=== PATIENT | female | born 1990 ===

== ENCOUNTER 2018-11-28 15:19 | Emergency (ER) | payer OTHER ==
[2018-11-28 15:28] VITALS: RESP 18
[2018-11-28] MEDS ORDERED: Sodium Chloride 0.9% 1,000 ML IV STA (15:50)
--- NOTE | 2018-11-28 16:29 | ED PDOC ---
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 Patient also reports associated mild lower abdominal cramping. She notes she is approximately 12 weeks . She states she has had care. Patient has been taking vitamins. This past Friday, she had an ultrasound which confirmed a viable IUP. She states this is her 4th and has 2 living children that are full term and c section delivered and 1 elective . Denies fever, vomiting, diarrhea, or urinary symptoms. Last period was September 03. PMD: Dr. Moustapha Bella [facility] Past Medical History Reviewed: Historical Data, Nursing Documentation, Vital Signs Vital Signs: Last Vital Signs Temp 97.8 F 11/28/18 15:25 Pulse 98 H 11/28/18 15:25 Resp 18 11/28/18 15:25 BP 116/76 11/28/18 15:25 Pulse Ox 100 11/28/18 15:25 - Medical History PMH: Hypothyroidism Other PMH: Thyroid nodules - Surgical History Surgical History: Appendectomy, - Family History Family History: States: Unknown Family Hx - Home Medications Home Medications: Ambulatory Orders Medication Instructions Recorded Multivit/Folic Acid/I 1 tab PO DAILY 08/17/16 [] Acetaminophen [Acetaminophen 8 650 mg PO Q8 PRN #21 tablet.er 11/28/18 Hour] 21/Iron Fu/Folic Acid 1 each PO DAILY #60 tablet 11/28/18 [ Complete Caplet] - Allergies Allergies/Adverse Reactions: Allergies Allergy/AdvReac Type Severity Reaction Status Date / Time No Known Allergies Allergy Verified 05/30/15 19:46 Review of Systems ROS Statement: Except As Marked, All Systems Reviewed And Found Negative Constitutional: Negative for: Fever Gastrointestinal: Positive for: Abdominal Pain (mild lower abdominal cramping). Negative for: Vomiting Genitourinary Female: Positive for: Vaginal Bleeding. Negative for: Dysuria, Hematuria Physical Exam - Reviewed Nursing Documentation Reviewed: Yes Vital Signs Reviewed: Yes - Physical Exam Comments: GENERAL APPEARANCE: Patient is awake, alert, oriented x 3, in no acute distress. Resting comfortably. SKIN: Warm, dry; (-) cyanosis. NECK: Supple ENT: Mucus membranes moist. Airway patent, (-) stridor. CHEST AND RESPIRATORY: (-) wheezing; (-) rales, (-) rhonchi; breath sounds equal bilaterally. Respirations nonlabored. HEART AND CARDIOVASCULAR: (-) irregularity ABDOMEN AND GI: Soft, (+) mild suprapubic tenderness (-) distention (-) guarding (-) rigidity. Bowel sounds active x4. EXTREMITIES: (-) deformity. NEURO AND PSYCH: Mental status as above. Gait: steady. Speech: clear. (-) facial asymmetry (-) aphasia. - Laboratory Results Result Diagrams: 11/28/18 16:30 Urine POC: Positive Urine dip results: Positive for: Blood (trace (expected as patient is complaining of vaginal bleeding)). Negative for: Leukocyte Esterase, Nitrate, Ketones, Glucose, Bilirubin, Protein - ECG O2 Sat by Pulse Oximetry: 100 (RA) Pulse Ox Interpretation: Normal Medical Decision Making Medical Decision Making: Initial Impression: Abdominal pain and vaginal bleeding in Initial Plan: --Type and screen stat --Beta HCG stat --CMP --ED urine --ED urine dipstick --CBC --Sodium chloride 1000mL IV --Tylenol 975mg PO --[place] [address] Udip reviewed. Trace hematuria. Upreg: positive 1725 Patient in U/S. Time:1849 US reviewed, radiology report follows FINDINGS: GESTATION: Single live intrauterine gestation with a crown-rump length of 5.7 cm corresponding to 12 weeks and 2 days. cardiac activity is 156 bpm. UTERUS: Unremarkable. No myometrial mass. CERVIX: Closed. Unremarkable. OVARIES: Neither ovary visualized. There is no adnexal mass identified. FREE FLUID: No free fluid. IMPRESSION: Single live intrauterine gestation of approximately 12 weeks and 2 days. No adnexal mass or free fluid collection. Cervix appears closed. Cli nical correlation and follow-up study recommended. Electronically signed on Nov 28, 2018 6:49:29 PM EST by: Wilber Rodriguez M.D., Certified by [facility], Diagnostic Radiology 1939 CBC unremarkable. No leukocytosis. Patient resting comfortably on re-evaluation. Beta Quant: [id number] Blood Type: O+ On re-evaluation, patient reports improvement of symptoms. On exam, patient remains AAOx3, in no acute distress. Lungs clear to auscultation, cardiac RRR, abdomen soft, non-tender, repeat neuro exam shows no focal findings. Vitals stable. Lab/Diagnostic results d/w the patient in great detail. Diagnosis of abdominal pain and vaginal bleeding in d/w the patient. Based on history, exam and diagnostic results, plan will be for outpatient follow up with OBGYN. Patient instructed to follow-up with pmd / referral provided / the clinic in 1- 2 days without fail. Advised to take medication as prescribed. Return to the emergency room at any time for any new or worsening symptoms. Patient states she fully agrees with and understands discharge instructions. States that she agrees with the plan and disposition. Verbalized and repeated discharge instructions and plan. I have given the patient opportunity to ask any additional questions. Scribe Attestation: Documented by Luis Sethi acting as a scribe for Oriana CARDOSO. Provider Scribe Attestation: All medical record entries made by the Scribe were at my direction and personally dictated by me. I have reviewed the chart and agree that the record accurately reflects my personal performance of the history, physical exam, medical decision making, and the department course for this patient. I have also personally directed, reviewed, and agree with the discharge instructions and disposition. Disposition - Clinical Impression Clinical Impression: Vaginal bleeding during , Abdominal pain affecting - Patient ED Disposition Is Patient to be Admitted: No Counseled Patient/Family Regarding: Studies Performed, Diagnosis, Need For Followup, Rx Given - Disposition Referrals: primary, doctor [Other] [facility] [Outside] Disposition: Routine/Home Disposition Time: 20:00 Condition: STABLE Additional Instructions: The emergency medical care you received today was directed at your acute symptoms. If you were prescribed any medication, please fill it and take as directed. It may take several days for your symptoms to resolve. Return to the Emergency Department if your symptoms worsen, do not improve, or if you have any other problems. Please contact your doctor in 2 days for re-evaluation and follow up / or call one of the physicians/clinics you have been referred to that are listed on the Patient Visit Information form that is included in your discharge packet. Bring any paperwork you were given at discharge with you along with any medications you are taking to your follow up visit. Our treatment cannot replace ongoing medical care by a primary care provider (PCP) outside of the emergency department. Prescriptions: Acetaminophen [Acetaminophen 8 Hour] 650 mg PO Q8 PRN #21 tablet.er PRN Reason: Pain, Moderate (4-7) 21/Iron Fu/Folic Acid [ Complete Caplet] 1 each PO DAILY #60 tablet Instructions: Bleeding With (DC), Stomach Pain in Early Forms: [employer] (Danish) Print Language: AZERBAIJANI - POA Present On Arrival: None Results - Diagnostic Imaging Results Radiology Results Obstetrics Ultrasound 11/28/18 15:51 IMPRESSION: As above. - Lab Results Lab Results: 11/28/18 11/28/18 11/28/18 18:55 18:45 16:30 WBC 10.8 RBC 4.25 Hgb 12.2 Hct 37.2 MCV 87.6 MCH 28.8 MCHC 32.9 L RDW 14.5 Plt Count 249 MPV 9.1 Neut % (Auto) 71.3 Lymph % (Auto) 20.3 [place] % (Auto) 5.5 Eos % (Auto) 2.2 Baso % (Auto) 0.7 Neut # (Auto) 7.7 H Lymph # (Auto) 2.2 [place] # (Auto) 0.6 Eos # (Auto) 0.2 Baso # (Auto) 0.1 Beta HCG, Quant 69102.00 Blood Type O POSITIVE Antibody Screen Negative BBK History Checked No verified bt
[2018-11-28 17:02] LABS: BASO # 0.1 K/uL (0.0-0.2); BASO % 0.7 % (0.0-2.0); EOS # 0.2 K/uL (0.0-0.7); EOS % 2.2 % (0.0-4.0); HEMOGLOBIN 12.2 g/dL (12.0-16.0); LYMPH # 2.2 K/uL (1.0-4.3); LYMPH % 20.3 % (20.0-40.0); MEAN CELL VOLUME 87.6 fl (81.0-99.0); MEAN CORPUSCULAR HEMOGLOBIN 28.8 pg (27.0-31.0); MEAN CORPUSCULAR HGB CONC 32.9 g/dL (33.0-37.0); MEAN PLATELET VOLUME 9.1 fl (7.2-11.7); MONO # 0.6 K/uL (0.0-0.8); MONO % 5.5 % (0.0-10.0); NEUT # 7.7 K/uL (1.8-7.0); NEUT % 71.3 % (50.0-75.0); NRBC % 0.1 % (0.0-0.0); RBC 4.25 Mil/uL (3.80-5.20); RED CELL DISTRIBUTION WIDTH 14.5 % (11.5-14.5); WHITE BLOOD COUNT 10.8 K/uL (4.8-10.8)
[2018-11-28 19:03] VITALS: TEMP 98.1; O2SAT 100
[2018-11-28 20:32] VITALS: BP 114/69; PULSE 71
--- NOTE | 2018-11-29 08:38 | US ---
Date of service: 11/28/2018 PROCEDURE: HISTORY: vag bleeding, 12 weeks COMPARISON: TECHNIQUE: FINDINGS: There is a single live intrauterine gestation with crown-rump length of 5.7 centimeters corresponding to 12 weeks and 2 days. There is heart motion. The ovaries are not identified. IMPRESSION: As above.
== END 2018-11-28 20:10 | disposition home or self-care (01) ==
LOC: H.ER 15:19
DX: O20.9 Hemorrhage in early pregnancy, unspecified (principal); O26.891 Other specified pregnancy related conditions, first trimester; Z3A.12 12 weeks gestation of pregnancy; O99.281 Endocrine, nutritional and metabolic diseases complicating pregnancy, first trimester; E03.9 Hypothyroidism, unspecified
CPT/HCPCS: 76815; 81025; 84702; 85025; 86850; 86900; 96360; 99283; J7030

== ENCOUNTER 2018-12-17 17:51 | Emergency (ER) | payer MEDICAID, OTHER ==
--- NOTE | 2018-12-17 18:45 | ED PDOC ---
HPI: Female Pain Time Seen by Provider: 12/17/18 18:34 Chief Complaint (Nursing): Female Genitourinary Chief Complaint (Provider): Female Genitourinary History Per: Patient History/Exam Limitations: no limitations Onset/Duration Of Symptoms: Days (x2 weeks) Additional Complaint(s): Patient is a 28 y/o female who is 14 weeks with continuous spotting for the last x2 weeks. Patient had a workup at this hospital when symptoms first started with normal blood work and US at the time. Since then she has followed up with her Digital Research Analyst, Dr. Michel, with no abnormalities. Today patient noticed a significant amount of blood in the toilet bowl after urinating. Denies abdominal pain, weakness, vaginal discharge, or pain on urination. Past Medical History Reviewed: Historical Data, Nursing Documentation, Vital Signs Vital Signs: Last Vital Signs Temp 98.2 F 12/17/18 17:55 Pulse 90 12/17/18 17:55 Resp 18 12/17/18 17:55 BP 101/66 12/17/18 17:55 Pulse Ox 100 12/17/18 17:55 - Medical History PMH: Hypothyroidism - Surgical History Surgical History: Appendectomy, - Family History Family History: States: Unknown Family Hx - Home Medications Home Medications: Ambulatory Orders Medication Instructions Recorded Multivit/Folic Acid/I 1 tab PO DAILY 08/17/16 [] Acetaminophen [Acetaminophen 8 650 mg PO Q8 PRN #21 tablet.er 11/28/18 Hour] 21/Iron Fu/Folic Acid 1 each PO DAILY #60 tablet 11/28/18 [ Complete Caplet] - Allergies Allergies/Adverse Reactions: Allergies Allergy/AdvReac Type Severity Reaction Status Date / Time No Known Allergies Allergy Verified 05/30/15 19:46 Review of Systems ROS Statement: Except As Marked, All Systems Reviewed And Found Negative Constitutional: Negative for: Weakness Gastrointestinal: Negative for: Abdominal Pain Genitourinary Female: Positive for: Hematuria, Vaginal Bleeding. Negative for: Dysuria, Vaginal Discharge Physical Exam - Reviewed Nursing Documentation Reviewed: Yes Vital Signs Reviewed: Yes - Physical Exam Appears: Positive for: Well, Non-toxic, No Acute Distress Head Exam: Positive for: ATRAUMATIC, NORMAL INSPECTION, NORMOCEPHALIC Skin: Positive for: Normal Color, Warm, Dry Eye Exam: Positive for: EOMI, Normal appearance, PERRL ENT: Positive for: Normal ENT Inspection Neck: Positive for: Normal, Painless ROM Cardiovascular/Chest: Positive for: Regular Rate, Rhythm. Negative for: Murmur Respiratory: Positive for: Normal Breath Sounds. Negative for: Respiratory Distress Gastrointestinal/Abdominal: Positive for: Normal Exam, Soft, Other (gravid just past pubic symphysis). Negative for: Tenderness Pelvic Exam: Positive for: Other (deferred) Back: Positive for: Normal Inspection Extremity: Positive for: Normal ROM. Negative for: Pedal Edema, Deformity Neurologic/Psych: Positive for: Alert, Oriented. Negative for: Motor/Sensory Deficits - ECG O2 Sat by Pulse Oximetry: 100 (RA) Pulse Ox Interpretation: Normal Medical Decision Making Medical Decision Making: Time: 18:38 Initial Impression: Workup for threatened . Initial Plan: * Labs * beta HCG * US * reassess 19:00 Patient to be signed out to Dr. Alvarado pending workup. Scribe Attestation: Documented by Zhao Willard, acting as a scribe for Oriana Almonte MD. Provider Scribe Attestation: All medical record entries made by the Scribe were at my direction and personally dictated by me. I have reviewed the chart and agree that the record accurately reflects my personal performance of the history, physical exam, medical decision making, and the department course for this patient. I have also personally directed, reviewed, and agree with the discharge instructions and disposition. Disposition - Clinical Impression Clinical Impression: Vaginal bleeding during - Patient ED Disposition Is Patient to be Admitted: Transfer of Care - Disposition Disposition Time: 19:00 Condition: STABLE Forms: [employer] (Italian)
--- NOTE | 2018-12-17 19:21 | ED PDOC ---
- Laboratory Results Result Diagrams: 12/17/18 19:35 12/17/18 19:35 - ECG O2 Sat by Pulse Oximetry: 100 (RA) Pulse Ox Interpretation: Normal Medical Decision Making Medical Decision Making: Time: 19:00 Patient care endorsed from Dr. Almonte to provider pending US and labs. 21:29 FINDINGS: UTERUS: Unremarkable. No myometrial mass. CERVIX: Closed. Unremarkable. OVARIES: Unremarkable. No mass. FREE FLUID: No free fluid. MISCELLANEOUS: The placenta is anterior. The placenta is not low lying. There is a variable presentation. motion is seen. heart motion is seen at 143 beats per minute. BPD measures 3.4 centimeters compatible with 16.4 weeks. AC measures 9.4 cm compatible 15.4 weeks. HC measures 12.0 cm compatible with 16.0 weeks. FL measures 2.0 cm compatible with 15.6 weeks. Mean ultrasound age measures 16.0 weeks plus or minus 8 days. The ovaries are not seen bilaterally. IMPRESSION: 1. Single live intrauterine gestation of approximately 16.0 weeks as described. 2. Additional and incidental findings as described above. 21:45 US reviewed. Patient reports only mild spotting since being in the ED. Scheduled follow up with Dr. Michel. Patient is stable for discharge at this time. Return precautions provided. Diagnosis is threatened miscarriage. - Scribe Attestation: Documented by Zhao Willard, acting as a scribe for John Alvarado MD. Provider Scribe Attestation: All medical record entries made by the Scribe were at my direction and personally dictated by me. I have reviewed the chart and agree that the record accurately reflects my personal performance of the history, physical exam, medical decision making, and the department course for this patient. I have also personally directed, reviewed, and agree with the discharge instructions and disposition. Disposition - Clinical Impression Clinical Impression: Vaginal bleeding during , Threatened - POA Present On Arrival: None - Disposition Disposition: Routine/Home Disposition Time: 21:45 Condition: STABLE Additional Instructions: HIMANSHU ALVARADO, thank you for letting us take care of you today. Your provider was John Alvarado MD and you were treated for 14 WKS PREG/SPOTTING. The emergency medical care you received today was directed at your acute symptoms. If you were prescribed any medication, please fill it and take as directed. It may take several days for your symptoms to resolve. Return to the Emergency Department if your symptoms worsen, do not improve, or if you have any other problems. Please contact your doctor or call one of the physicians/clinics you have been referred to that are listed on the Patient Visit Information form that is included in your discharge packet. Bring any paperwork you were given at discharge with you along with any medications you are taking to your follow up v isit. Our treatment cannot replace ongoing medical care by a primary care provider outside of the emergency department. Thank you for allowing the [facility] team to be part of your care today. If you had an X-Ray or CT scan: A Radiologist will review the ED reading if any change in treatment is needed we will contact you. If you had a blood, urine, or wound culture: It will take several days for the results, if any change in treatment is needed we will contact you. If you had an STI test: It will take 48 hours for the results. Please call after 1 week if you have not heard back. Instructions: Bleeding With Forms: [employer] (Pashto)
[2018-12-17 19:23] LABS: SQUAMOUS EPITHIAL 14 /hpf (0-5); URINE AMORPHOUS SEDIMENT OCC /ul (<OCC); URINE BACTERIA RARE (<OCC); URINE BILIRUBIN NEGATIVE (NEGATIVE); URINE BLOOD SMALL (NEGATIVE); URINE CLARITY CLOUDY (Clear); URINE COLOR YELLOW (YELLOW); URINE GLUCOSE (UA) NEG (NEGATIVE); URINE LEUKOCYTE ESTERASE NEG Leu/uL (Negative); URINE PROTEIN 30 mg/dL (NEGATIVE); URINE UROBILINOGEN 0.2-1.0 mg/dL (0.2-1.0)
[2018-12-17 20:13] LABS: BASO % 0.2 % (0.0-2.0); EOS # 0.3 K/uL (0.0-0.7); EOS % 3.4 % (0.0-4.0); HEMOGLOBIN 11.7 g/dL (12.0-16.0); LYMPH % 20.4 % (20.0-40.0); MEAN CELL VOLUME 88.1 fl (81.0-99.0); MEAN CORPUSCULAR HEMOGLOBIN 29.1 pg (27.0-31.0); MONO # 0.5 K/uL (0.0-0.8); MONO % 5.2 % (0.0-10.0); NEUT # 6.8 K/uL (1.8-7.0); NEUT % 70.8 % (50.0-75.0); RBC 4.01 Mil/uL (3.80-5.20); RED CELL DISTRIBUTION WIDTH 14.7 % (11.5-14.5); WHITE BLOOD COUNT 9.6 K/uL (4.8-10.8)
[2018-12-17 20:21] LABS: BLOOD UREA NITROGEN 13 mg/dl (7-17); CALCIUM 9.7 mg/dL (8.4-10.2); GFR NON-AFRICAN AMERICAN > 60
[2018-12-17 22:13] VITALS: BP 110/78; PULSE 88; RESP 16; TEMP 98
[2018-12-18 06:26] VITALS: O2SAT 100
--- NOTE | 2018-12-18 11:07 | US ---
Date of service: 12/17/2018 PROCEDURE: OB Pelvic Ultrasound HISTORY: vaginal spotting and abd pain LMP: 09/06/2018 COMPARISON: Pelvic ultrasound dated 11/28/2018. FINDINGS: UTERUS: Placenta: Anterior Presentation: Variable BPD: 3.4 cm compatible with estimated gestational age of 16 weeks, 4 days HC: 12.0 cm compatible with estimated gestational age of 16 weeks, 0 days AC: 9.4 cm compatible with estimated gestational age of 15 weeks, 4 days FL: 2.0 cm compatible with estimated gestational age of 15 weeks, 6 days Heart rate: 143 bpm. age (Ultrasound estimated): 16 weeks, 0 days Karen-gestational hemorrhage: None. Date of delivery (Ultrasound estimated) : 06/03/2019 EFW 132.72 gram +/-19.91 gram (5 ounce +/-1 ounce) CERVIX: Measures 5.2 cm. Long and closed. No cervical abnormality seen. RIGHT OVARY: Not visualized LEFT OVARY: Not visualized FREE FLUID: None. OTHER FINDINGS: None. IMPRESSION: Single live intrauterine gestation with average ultrasound age of 16 weeks, 0 days. heart rate 143 beats per minute. Cervix cervix long and closed.
== END 2018-12-17 22:12 | disposition home or self-care (01) ==
LOC: H.ER 17:51
DX: O20.0 Threatened abortion (principal); Z3A.16 16 weeks gestation of pregnancy; O99.282 Endocrine, nutritional and metabolic diseases complicating pregnancy, second trimester; E03.9 Hypothyroidism, unspecified